=== PATIENT | female | born 1935 | race Caucasian/White ===

== ENCOUNTER → 2016-10-26 | Outpatient (CLI) | payer OTHER ==
[~2016-10-26] MED LIST: ALBUTEROL SULFATE 2.5 MG/0.5 ML NEB SOLUTION NEB SCH; ASPI-556 PO; ATOR10TA84 PO; CALC600T95 PO; FURO20 PO; HUM10VIA INJ; HYDR-3110 PO; KDUR20 PO; METF500T4 PO; SELE200T2 PO
== END | disposition home or self-care (01) ==
LOC: RESP 14:45
PROVIDERS: ATTEND Internal Medicine Critical Care Medicine
DX: J44.9 Chronic obstructive pulmonary disease, unspecified (principal)
CPT/HCPCS: 94010; 94726; 94727 ×2; 94729; J7613